=== PATIENT | female | born 1945 | race Caucasian/White ===

== ENCOUNTER 2016-06-12 11:33 | Emergency (ER) | payer MEDICARE, OTHER ==
[~2016-06-12] VITALS: Ht 160 cm; Wt 61.7 kg
[~2016-06-12 11:33] MED LIST: ASPIR-LOW81 MG PO; DILTIAZEM30 MG PO; LEXAPRO20 MG PO; LIPITOR20 MG PO; MACROBID100 M1 PO; PRADAXA150 MG PO; SYMBICORT1 AE1 IH
[2016-06-12] MEDS ORDERED: VIVLODEX10 MG PO (12:00)
[2016-06-12] MEDS ORDERED: CARDIZEM LA120 MG PO (12:01)
[2016-06-12] MEDS ORDERED: PROAIR HFA8.5 GM INH (13:49)
[2016-06-12] MEDS ORDERED: PREDNISONE10 MG PO (13:49)
[2016-06-12] MEDS ORDERED: CODEINE-GUAIFE120 ML PO (13:51)
== END 2016-06-12 13:54 | disposition home or self-care (01) ==
LOC: ED 11:33
DX: J40 Bronchitis, not specified as acute or chronic (principal); Z79.82 Long term (current) use of aspirin; Z95.0 Presence of cardiac pacemaker

== ENCOUNTER → 2016-12-27 | Outpatient (CLI) | payer MEDICARE, OTHER ==
[~2016-12-27] MED LIST changes: +CARDIZEM LA120 MG PO; +CODEINE-GUAIFE120 ML PO; +PREDNISONE10 MG PO; +PROAIR HFA8.5 GM INH; +VIVLODEX10 MG PO
[2016-12-27 10:12] LABS: BASO % 0.5 % (0.0-1.0); EOS # 0.3 10*3/uL (0.0-0.4); EOS % 3.7 % (1.0-4.0); HEMOGLOBIN 12.2 g/dl (12.0-16.0); LYMPH # 1.7 10*3/uL (1.3-4.4); MEAN CELL VOLUME 92.2 fl (81.0-99.0); MEAN CORPUSCULAR HGB 29.6 pg (27.0-31.0); MEAN CORPUSCULAR HGB CONC 32.1 g/dl (33.0-37.0); MEAN PLATELET VOLUME 10.5 fl (9.6-12.3); MONO # 0.7 10*3/uL (0.1-1.0); MONO % 9.3 % (3.0-9.0); NEUT # 4.7 10*3/uL (2.3-7.9); NEUT % 63.1 % (47.0-73.0); PLATELET COUNT AUTOMATED 192 10*3/uL (130-400); RED BLOOD COUNT 4.12 10*6/uL (4.10-5.10); RED CELL DISTRI WIDTH 13.5 % (0-14.5); WHITE BLOOD COUNT 7.5 10*3/uL (4.8-10.8)
[2016-12-27 10:18] LABS: ALKALINE PHOSPHATASE 100 U/L (45-117); BUN 23 mg/dl (7-24); CHLORIDE 104 mmol/L (98-107); CHOLESTEROL 174 mg/dL (<200); CREATININE 1.04 mg/dL (0.55-1.02); HDL CHOLESTEROL 81 mg/dl (40-60); LDL CHOLESTEROL 71 mg/dL (9-159); POTASSIUM 4.3 mmol/L (3.5-5.1); SGOT/AST 18 IU/L (3-35); SGPT/ALT 19 U/L (12-78); SODIUM 140 mmol/L (136-145); TOTAL PROTEIN 7.5 gm/dL (6.4-8.2); TRIGLYCERIDES 112 mg/dl (<150); VLDL CHOLESTEROL 22 mg/dL (6-40)
== END | disposition home or self-care (01) ==
LOC: LAB 09:20
PROVIDERS: Internal Medicine
DX: I10 Essential (primary) hypertension (principal); E78.00 Pure hypercholesterolemia, unspecified; M85.89 Other specified disorders of bone density and structure, multiple sites

== ENCOUNTER → 2017-10-17 | Outpatient (CLI) | payer MEDICARE, OTHER | END | disposition home or self-care (01) | LOC: MAMMO 10-11 07:09 | DX: Z12.31 Encounter for screening mammogram for malignant neoplasm of breast (principal) ==

== ENCOUNTER 2018-02-03 16:18 | Emergency (ER) | payer MEDICARE, OTHER ==
[~2018-02-03] VITALS: Ht 162.5 cm; Wt 61.7 kg
[2018-02-03 16:18] VITALS: BP 130/78
[2018-02-03] MEDS ORDERED: GUAIFEN-CODEIN118 ML PO (19:06)
[2018-02-03] MEDS ORDERED: VIBRAMYCIN100 MG PO (19:06)
== END 2018-02-03 19:31 | disposition home or self-care (01) ==
LOC: ED 16:18
DX: J06.9 Acute upper respiratory infection, unspecified (principal); Z79.82 Long term (current) use of aspirin; Z79.899 Other long term (current) drug therapy

== ENCOUNTER → 2018-08-22 | Outpatient (CLI) | payer MEDICARE, OTHER ==
[~2018-08-22] MED LIST changes: +GUAIFEN-CODEIN118 ML PO; +VIBRAMYCIN100 MG PO
== END | disposition home or self-care (01) ==
LOC: CARD 12:00
DX: R06.09 Other forms of dyspnea (principal)

== ENCOUNTER 2019-03-20 19:56 | Emergency (ER) | payer MEDICARE, OTHER ==
[~2019-03-20] VITALS: Ht 160 cm; Wt 62.6 kg
[2019-03-20 19:59] VITALS: BP 134/62
[2019-03-20] MEDS ORDERED: OXYBUTYNIN10 MG PO (20:02)
[2019-03-20] MEDS ORDERED: CARTIA XT180 MG PO (20:02)
[2019-03-21] MEDS ORDERED: ZANAFLEX2 M1 PO (00:10)
[2019-03-21] MEDS ORDERED: ULTRAM50 MG PO (00:12)
== END 2019-03-21 00:30 | disposition home or self-care (01) ==
LOC: ED 19:56
DX: M51.36 Other intervertebral disc degeneration, lumbar region (principal); M48.061 Spinal stenosis, lumbar region without neurogenic claudication; I10 Essential (primary) hypertension; E11.9 Type 2 diabetes mellitus without complications; J44.9 Chronic obstructive pulmonary disease, unspecified; E78.5 Hyperlipidemia, unspecified; I48.91 Unspecified atrial fibrillation; Z95.0 Presence of cardiac pacemaker; Z79.82 Long term (current) use of aspirin; Z79.899 Other long term (current) drug therapy

== ENCOUNTER → 2019-06-19 | Outpatient (CLI) | payer MEDICARE, OTHER ==
[~2019-06-19] MED LIST changes: +CARTIA XT180 MG PO; +OXYBUTYNIN10 MG PO; +ULTRAM50 MG PO; +ZANAFLEX2 M1 PO
== END | disposition home or self-care (01) ==
LOC: US 15:24
DX: M79.662 Pain in left lower leg (principal)

== ENCOUNTER 2019-06-30 21:59 | Emergency (ER) | payer MEDICARE, OTHER ==
[~2019-06-30] VITALS: Ht 162.5 cm; Wt 66.2 kg
[2019-06-30 22:42] VITALS: BP 123/60
[2019-06-30 23:02] LABS: BASO # 0.1 10*3/uL (0.0-0.1); BASO % 0.7 % (0.0-1.0); EOS # 0.3 10*3/uL (0.0-0.4); EOS % 3.3 % (1.0-4.0); HEMATOCRIT 36.2 % (37.0-47.0); HEMOGLOBIN 11.6 g/dl (12.0-16.0); LYMPH # 2.2 10*3/uL (1.3-4.4); LYMPH % 26.5 % (27.0-41.0); MEAN CORPUSCULAR HGB 30.8 pg (27.0-31.0); MEAN PLATELET VOLUME 9.8 fl (9.6-12.3); MONO # 0.8 10*3/uL (0.1-1.0); MONO % 9.4 % (3.0-9.0); NEUT # 4.9 10*3/uL (2.3-7.9); NEUT % 59.7 % (47.0-73.0); PLATELET COUNT AUTOMATED 229 10*3/uL (130-400); RED BLOOD COUNT 3.77 10*6/uL (4.10-5.10); RED CELL DISTRI WIDTH 13.2 % (0-14.5); WHITE BLOOD COUNT 8.2 10*3/uL (4.8-10.8)
[2019-06-30 23:12] LABS: ACT PARTIAL THROMBO TIME 25.2 SECONDS (20.0-32.1)
[2019-06-30 23:16] LABS: ALBUMIN 3.5 gm/dl (3.1-4.5); CREATININE 1.8 mg/dL (0.55-1.02)
[2019-07-01] MEDS ORDERED: CEPHALEXIN500 M1 PO (00:27)
== END 2019-07-01 00:48 | disposition home or self-care (01) ==
LOC: ED 21:59
PROVIDERS: Nurse Practitioner Family
DX: L03.116 Cellulitis of left lower limb (principal); Z79.899 Other long term (current) drug therapy; Z79.82 Long term (current) use of aspirin

== ENCOUNTER → 2019-08-08 | Outpatient (CLI) | payer MEDICARE, OTHER ==
[~2019-08-08] MED LIST changes: +CEPHALEXIN500 M1 PO
== END | disposition home or self-care (01) ==
LOC: US 14:30
DX: I48.0 Paroxysmal atrial fibrillation (principal); M79.662 Pain in left lower leg

== ENCOUNTER → 2019-09-17 | Outpatient (CLI) | payer MEDICARE, OTHER | END | disposition home or self-care (01) | LOC: CT 00:19 | DX: M48.07 Spinal stenosis, lumbosacral region (principal); M48.061 Spinal stenosis, lumbar region without neurogenic claudication; M81.0 Age-related osteoporosis without current pathological fracture; M54.16 Radiculopathy, lumbar region; M25.78 Osteophyte, vertebrae; I70.0 Atherosclerosis of aorta; M53.86 Other specified dorsopathies, lumbar region; M96.1 Postlaminectomy syndrome, not elsewhere classified; Z98.890 Other specified postprocedural states; Z02.9 Encounter for administrative examinations, unspecified ==

== ENCOUNTER → 2019-10-06 | Outpatient (CLI) | payer MEDICARE, OTHER | END | disposition home or self-care (01) | LOC: MAMMO 03:00 | DX: Z12.31 Encounter for screening mammogram for malignant neoplasm of breast (principal); M85.89 Other specified disorders of bone density and structure, multiple sites; Z78.0 Asymptomatic menopausal state ==

== ENCOUNTER → 2019-11-03 | Outpatient (CLI) | payer MEDICARE, OTHER | END | disposition home or self-care (01) | LOC: MAMMO 01:00 | DX: R92.8 Other abnormal and inconclusive findings on diagnostic imaging of breast (principal) ==

== ENCOUNTER → 2020-04-05 | Outpatient (CLI) | payer MEDICARE, OTHER | END | disposition home or self-care (01) | LOC: COVID19 09:40 | PROVIDERS: ATTEND Internal Medicine | DX: U07.1 COVID-19 (principal) ==

== ENCOUNTER → 2020-04-27 | Outpatient (CLI) | payer MEDICARE, OTHER | END | disposition home or self-care (01) | LOC: RAD 00:18 → CARD 13:00 | PROVIDERS: ATTEND Internal Medicine Cardiovascular Disease | DX: I51.7 Cardiomegaly (principal); R06.00 Dyspnea, unspecified; Z95.0 Presence of cardiac pacemaker ==

== ENCOUNTER → 2020-11-04 | Outpatient (CLI) | payer MEDICARE, OTHER | END | disposition home or self-care (01) | LOC: MAMMO 00:11 | PROVIDERS: ATTEND Physician Assistant | DX: Z12.31 Encounter for screening mammogram for malignant neoplasm of breast (principal); N64.89 Other specified disorders of breast ==

== ENCOUNTER → 2020-11-25 | Outpatient (CLI) | payer MEDICARE, OTHER | END | disposition home or self-care (01) | LOC: MAMMO 00:09 | PROVIDERS: ATTEND Physician Assistant | DX: R92.8 Other abnormal and inconclusive findings on diagnostic imaging of breast (principal) ==

== ENCOUNTER → 2021-01-03 | Outpatient (CLI) | payer MEDICARE, OTHER | END | disposition home or self-care (01) | LOC: RAD 11:32 | PROVIDERS: ATTEND Physician Assistant | DX: R06.02 Shortness of breath (principal) ==

== ENCOUNTER → 2021-01-25 | Outpatient (CLI) | payer MEDICARE, OTHER | END | disposition home or self-care (01) | LOC: CT 00:14 | PROVIDERS: ATTEND Physician Assistant | DX: R93.89 Abnormal findings on diagnostic imaging of other specified body structures (principal); J43.9 Emphysema, unspecified; I70.8 Atherosclerosis of other arteries ==

== ENCOUNTER → 2022-04-17 | Outpatient (CLI) | payer MEDICARE, OTHER ==
[~2022-04-17] MED LIST changes: +CALTRATE 600 P1 EAC1 PO; +MULTIPLE VITAM1 EAC2 PO; +STIOLTO RESPIMAT4 GM INH; +VITAMIN C1000 M5 PO; +VITAMIN D250 MCG PO
== END | disposition home or self-care (01) ==
LOC: CARD 04-05 00:15 → MAMMO 04-05 08:00 → CARD 04-05 09:00 → MAMMO 04-19 09:30
PROVIDERS: ATTEND Internal Medicine Cardiovascular Disease
DX: R07.2 Precordial pain (principal); R06.09 Other forms of dyspnea; R06.02 Shortness of breath; Z95.0 Presence of cardiac pacemaker

== ENCOUNTER → 2022-04-19 | Outpatient (CLI) | payer MEDICARE, OTHER | END | disposition home or self-care (01) | LOC: MAMMO 01:32 | PROVIDERS: ATTEND Physician Assistant | DX: Z12.31 Encounter for screening mammogram for malignant neoplasm of breast (principal); R92.1 Mammographic calcification found on diagnostic imaging of breast ==

== ENCOUNTER 2022-04-24 15:23 | Inpatient (IN) | payer MEDICARE, OTHER ==
[~2022-04-24] VITALS: Ht 160 cm; Wt 65.0 kg
[2022-04-24 15:31] VITALS: BP 154/56
[2022-04-24 16:01] LABS: BASO # 0.1 10*3/uL (0.0-0.1); BASO % 0.8 % (0.0-1.0); EOS # 0.4 10*3/uL (0.0-0.4); EOS % 4.7 % (1.0-4.0); HEMATOCRIT 39.5 % (37.0-47.0); LYMPH # 1.7 10*3/uL (1.3-4.4); LYMPH % 22.7 % (27.0-41.0); MEAN CELL VOLUME 93.6 fl (81.0-99.0); MEAN CORPUSCULAR HGB 30.8 pg (27.0-31.0); MEAN CORPUSCULAR HGB CONC 32.9 g/dl (33.0-37.0); MEAN PLATELET VOLUME 9.8 fl (9.6-12.3); MONO # 0.7 10*3/uL (0.1-1.0); MONO % 8.7 % (3.0-9.0); NEUT # 4.8 10*3/uL (2.3-7.9); NEUT % 62.8 % (47.0-73.0); PLATELET COUNT AUTOMATED 220 10*3/uL (130-400); RED BLOOD COUNT 4.22 10*6/uL (4.10-5.10); RED CELL DISTRI WIDTH 12.8 % (0-14.5); WHITE BLOOD COUNT 7.7 10*3/uL (4.8-10.8)
[2022-04-24 16:11] LABS: ACT PARTIAL THROMBO TIME 25.1 SECONDS (20.0-32.1)
[2022-04-24 16:16] LABS: BILIRUBIN Negative (Negative); BLOOD Negative (Negative); CLARITY Clear (Clear); COLOR Yellow (Yellow); GLUCOSE Negative (Negative); KETONE Trace (Negative); LEUKO ESTERASE 1+ (Negative); NITRITE Negative (Negative); PH 5.5 (4.5-8.0)
[2022-04-24 16:24] LABS: ALKALINE PHOSPHATASE 79 U/L (46-116); BUN 26 mg/dl (9-23); CHLORIDE 103 mmol/L (98-107); LIPASE 39 U/L (12-53); POTASSIUM 4.1 mmol/L (3.4-5.1); SGPT/ALT 12 U/L (10-49)
[2022-04-24 16:49] LABS: MUCOUS 1+
[2022-04-24 18:54] VITALS: BP 155/77
[2022-04-24 20:45] VITALS: BP 144/79
[2022-04-25] VITALS: BP 158/67
[2022-04-25 06:52] LABS: BASO # 0.1 10*3/uL (0.0-0.1); BASO % 0.9 % (0.0-1.0); EOS # 0.5 10*3/uL (0.0-0.4); EOS % 8.1 % (1.0-4.0); LYMPH # 1.9 10*3/uL (1.3-4.4); MEAN CELL VOLUME 94.1 fl (81.0-99.0); MEAN CORPUSCULAR HGB 30.6 pg (27.0-31.0); MEAN CORPUSCULAR HGB CONC 32.6 g/dl (33.0-37.0); MEAN PLATELET VOLUME 10.3 fl (9.6-12.3); MONO # 0.5 10*3/uL (0.1-1.0); MONO % 8.8 % (3.0-9.0); NEUT # 2.7 10*3/uL (2.3-7.9); PLATELET COUNT AUTOMATED 185 10*3/uL (130-400); RED BLOOD COUNT 3.72 10*6/uL (4.10-5.10); RED CELL DISTRI WIDTH 12.8 % (0-14.5); WHITE BLOOD COUNT 5.6 10*3/uL (4.8-10.8)
[2022-04-25 07:05] LABS: ACT PARTIAL THROMBO TIME 26.1 SECONDS (20.0-32.1)
[2022-04-25 07:37] LABS: VITAMIN D, 25-HYDROXY 51.2 ng/mL (30-100)
[2022-04-25 08:00] VITALS: BP 149/74
[2022-04-25 08:19] LABS: ALKALINE PHOSPHATASE 64 U/L (46-116); BUN 20 mg/dl (9-23); CHLORIDE 105 mmol/L (98-107); CHOLESTEROL 162 mg/dL (<200); FREE T4 0.95 ng/dl (0.89-1.76); LDL CHOLESTEROL 76 mg/dL (9-159); POTASSIUM 3.6 mmol/L (3.4-5.1); SGPT/ALT 14 U/L (10-49); THYROID STIM HORMONE (HS) 2.707 uIU/ml (0.550-4.780); TOTAL PROTEIN 5.8 gm/dL (6.0-8.0); TRIGLYCERIDES 112 mg/dl (<150)
[2022-04-25 12:00] VITALS: BP 152/72
[2022-04-25 15:58] VITALS: BP 142/81
[2022-04-25 20:00] VITALS: BP 150/62
[2022-04-26] VITALS: BP 142/72
[2022-04-26 08:00] VITALS: BP 145/65; BP 170/80
== END 2022-04-26 11:45 | disposition home health service (06) | DRG 640 ==
LOC: ED 15:23 → 4E 18:30 → EDHOLD 18:30 → 4E 20:29
PROVIDERS: Emergency Medicine; Internal Medicine; ADMIT Internal Medicine; ATTEND Internal Medicine
DX: E86.0 Dehydration (principal); N17.0 Acute kidney failure with tubular necrosis; I12.9 Hypertensive chronic kidney disease with stage 1 through stage 4 chronic kidney disease, or unspecified chronic kidney disease; N18.32 Chronic kidney disease, stage 3b; I48.0 Paroxysmal atrial fibrillation; E83.42 Hypomagnesemia; R09.89 Other specified symptoms and signs involving the circulatory and respiratory systems; E78.2 Mixed hyperlipidemia; M48.061 Spinal stenosis, lumbar region without neurogenic claudication; D64.9 Anemia, unspecified; Z66 Do not resuscitate; Z83.3 Family history of diabetes mellitus; Z82.49 Family history of ischemic heart disease and other diseases of the circulatory system; Z95.0 Presence of cardiac pacemaker; Z98.49 Cataract extraction status, unspecified eye; Z80.8 Family history of malignant neoplasm of other organs or systems

== ENCOUNTER → 2022-10-17 | Outpatient (CLI) | payer MEDICARE, OTHER ==
[~2022-10-17] MED LIST changes: +TRAMADOL HCL50 MG PO
[2022-10-17 11:25] LABS: HEMATOCRIT 38.4 % (37.0-47.0); MEAN CELL VOLUME 93.4 fl (81.0-99.0); MEAN CORPUSCULAR HGB 30.7 pg (27.0-31.0); MEAN CORPUSCULAR HGB CONC 32.8 g/dl (33.0-37.0); MEAN PLATELET VOLUME 10.1 fl (9.6-12.3); RED BLOOD COUNT 4.11 10*6/uL (4.10-5.10)
[2022-10-17 12:10] LABS: POTASSIUM 4.5 mmol/L (3.4-5.1)
== END | disposition home or self-care (01) ==
LOC: LAB 00:24
PROVIDERS: ATTEND Physician Assistant
DX: J43.9 Emphysema, unspecified (principal); F33.41 Major depressive disorder, recurrent, in partial remission; M48.061 Spinal stenosis, lumbar region without neurogenic claudication; R42 Dizziness and giddiness; I48.0 Paroxysmal atrial fibrillation; I10 Essential (primary) hypertension; N39.41 Urge incontinence; M54.6 Pain in thoracic spine

== ENCOUNTER → 2022-10-20 | Outpatient (CLI) | payer MEDICARE, OTHER | END | disposition home or self-care (01) | LOC: RAD 10-09 10:30 | PROVIDERS: ATTEND Physician Assistant | DX: Z78.0 Asymptomatic menopausal state (principal) ==

== ENCOUNTER → 2024-02-06 | Outpatient (CLI) | payer MEDICARE, OTHER | END | disposition home or self-care (01) | LOC: MAMMO 00:42 | PROVIDERS: ATTEND Physician Assistant | DX: Z12.31 Encounter for screening mammogram for malignant neoplasm of breast (principal); R92.333 Mammographic heterogeneous density, bilateral breasts; Z95.0 Presence of cardiac pacemaker ==

== ENCOUNTER 2024-03-09 16:41 | Emergency (ER) | payer MEDICARE, OTHER ==
[~2024-03-09] VITALS: Ht 162.5 cm; Wt 61.2 kg
[2024-03-09 17:37] VITALS: BP 123/68
[2024-03-09] MEDS ORDERED: Acetaminophen/Oxycodone 5 MG/325 MG TABLET PO ONE (17:45)
== END 2024-03-09 18:22 | disposition home or self-care (01) ==
LOC: ED 16:41
DX: S09.8XXA Other specified injuries of head, initial encounter (principal); M54.2 Cervicalgia; I10 Essential (primary) hypertension; J44.9 Chronic obstructive pulmonary disease, unspecified; I48.91 Unspecified atrial fibrillation; E78.5 Hyperlipidemia, unspecified; Z98.890 Other specified postprocedural states; Z95.5 Presence of coronary angioplasty implant and graft; Z87.891 Personal history of nicotine dependence; W01.198A Fall on same level from slipping, tripping and stumbling with subsequent striking against other object, initial encounter; Y93.89 Activity, other specified; Y92.003 Bedroom of unspecified non-institutional (private) residence as the place of occurrence of the external cause; Y99.8 Other external cause status

== ENCOUNTER → 2024-06-18 | Outpatient (CLI) | payer MEDICARE, OTHER | END | disposition home or self-care (01) | LOC: RAD 12:10 | PROVIDERS: ATTEND Physician Assistant | DX: M48.04 Spinal stenosis, thoracic region (principal); M48.061 Spinal stenosis, lumbar region without neurogenic claudication; M47.814 Spondylosis without myelopathy or radiculopathy, thoracic region; R79.89 Other specified abnormal findings of blood chemistry; M47.816 Spondylosis without myelopathy or radiculopathy, lumbar region; M25.78 Osteophyte, vertebrae; M54.9 Dorsalgia, unspecified; Z98.890 Other specified postprocedural states ==

== ENCOUNTER 2024-12-17 09:49 | Emergency (ER) | payer MEDICARE, OTHER ==
[~2024-12-17] VITALS: Ht 162.5 cm; Wt 61.2 kg
[2024-12-17 10:18] VITALS: BP 184/69
[2024-12-17] MEDS ORDERED: TRAMADOL HCL50 MG PO (12:35)
== END 2024-12-17 14:00 | disposition home or self-care (01) ==
LOC: ED 09:49
DX: S20.212A Contusion of left front wall of thorax, initial encounter (principal); I48.91 Unspecified atrial fibrillation; I12.9 Hypertensive chronic kidney disease with stage 1 through stage 4 chronic kidney disease, or unspecified chronic kidney disease; N18.9 Chronic kidney disease, unspecified; Z79.899 Other long term (current) drug therapy; Z79.82 Long term (current) use of aspirin; Z98.890 Other specified postprocedural states; Z95.0 Presence of cardiac pacemaker; Z87.891 Personal history of nicotine dependence; W18.39XA Other fall on same level, initial encounter; Y93.89 Activity, other specified; Y92.89 Other specified places as the place of occurrence of the external cause; Y99.8 Other external cause status

== ENCOUNTER → 2025-02-04 | Outpatient (CLI) | payer MEDICARE, OTHER | END | disposition home or self-care (01) | LOC: MAMMO 02:15 | PROVIDERS: ATTEND Physician Assistant | DX: Z12.31 Encounter for screening mammogram for malignant neoplasm of breast (principal); R92.333 Mammographic heterogeneous density, bilateral breasts ==